=== PATIENT | male | born 1960 | race African-American/Black ===

== ENCOUNTER 2021-12-04 17:33 | Inpatient (IN) | payer OTHER ==
[2021-12-04 18:17] LABS: BASO % 0.5 % (0-2.0); EOS % 0.2 % (0-4.5); HEMATOCRIT 46.1 % (35.4-49); HEMOGLOBIN 14.4 GM/dL (11.7-16.9); LYMPH % 33.3 % (8-40); MCHC 31.3 g/dl (32.0-35.9); MEAN CELL VOLUME 73.5 fl (80-96); MEAN PLT VOLUME 9.7 fl (7.5-11.1); MONO % 13.1 % (3.8-10.2); NEUT % 52.9 % (42.8-82.8); PLATELET COUNT 139 10^3/uL (134-434); RBC 6.27 M/mm3 (4.00-5.60); RDW 14.6 % (11.9-15.9); WHITE BLOOD COUNT 3.9 K/mm3 (4.0-10.0)
[2021-12-04 18:37] LABS: ACTIVATED PTT 35.9 SECONDS (25.2-36.5); INR 1.24 (0.83-1.09); PROTHROMBIN TIME (PATIENT) 14.3 SEC (9.7-13.0)
[2021-12-04 18:40] LABS: CALCIUM 9.1 mg/dL (8.5-10.1)
[2021-12-04 18:41] LABS: BLOOD UREA NITROGEN 29.5 mg/dL (7-18)
[2021-12-04 18:43] LABS: CREATININE 1.7 mg/dL (0.55-1.3)
[2021-12-04 18:43] LABS: TRIGLYCERIDES 81 mg/dL (0-150)
[2021-12-04 18:44] LABS: CHOLESTEROL 174 mg/dL (50-200); LDL CHOLESTEROL (ONLY SJRH) 90 mg/dL (5-100)
[2021-12-04 18:45] LABS: BILIRUBIN,TOTAL 0.4 mg/dL (0.2-1); TOT PROT 8.1 g/dl (6.4-8.2)
[2021-12-04 18:45] LABS: HDL CHOLESTEROL 66 mg/dL (40-60)
[2021-12-04] MEDS: APIXABAN 5 MG TABLET PO SCH (21:41)
[2021-12-04] MEDS ORDERED: APIXABAN 5 MG TABLET ONE (21:43)
[2021-12-04] MEDS ORDERED: metoPROLOL SUCCINATE 25 MG TAB.SR.24H (FP) PO SCH (22:00)
[2021-12-05] MEDS ORDERED: SODIUM CHLORIDE 1,000 ML IV SCH (01:45)
[2021-12-05 02:37] LABS: URINE APPEARANCE CLEAR; URINE BILIRUBIN NEGATIVE (NEGATIVE); URINE COLOR YELLOW; URINE GLUCOSE (UA) NEGATIVE (NEGATIVE); URINE KETONE 1+ (NEGATIVE); URINE LEUK ESTERASE NEGATIVE (NEGATIVE); URINE NITRITE NEGATIVE (NEGATIVE); URINE PROTEIN TRACE (NEGATIVE); URINE UROBILINOGEN 0.2 mg/dL (0.2-1.0)
[2021-12-05 02:39] LABS: COCAINE, UR NEGATIVE (NEGATIVE); METHADONE, UR NEGATIVE (NEGATIVE); URINE BENZODIAZEPINES NEGATIVE (NEGATIVE)
[2021-12-05 02:40] LABS: PHENCYCLIDINE,URINE NEGATIVE (NEGATIVE); URINE BARBITURATES NEGATIVE (NEGATIVE)
[2021-12-05] MEDS: ATORVASTATIN CA 40 MG TABLET (FP) PO SCH ×2 (02:49→21:51)
[2021-12-05 02:57] LABS: OPIATES, URI NEGATIVE (NEGATIVE); URINE AMPHETAMINES NEGATIVE (NEGATIVE)
[2021-12-05 08:47] LABS: BASO % 0.6 % (0-2.0); EOS % 1.2 % (0-4.5); HEMATOCRIT 43.9 % (35.4-49); HEMOGLOBIN 13.7 GM/dL (11.7-16.9); LYMPH % 41.5 % (8-40); MCHC 31.1 g/dl (32.0-35.9); MEAN PLT VOLUME 9.7 fl (7.5-11.1); MONO % 16.2 % (3.8-10.2); NEUT % 40.5 % (42.8-82.8); PLATELET COUNT 131 10^3/uL (134-434); RBC 5.94 M/mm3 (4.00-5.60); RDW 15.3 % (11.9-15.9); WHITE BLOOD COUNT 3.3 K/mm3 (4.0-10.0)
[2021-12-05 09:12] LABS: CALCIUM 9.1 mg/dL (8.5-10.1)
[2021-12-05 09:13] LABS: MAGNESIUM 2.1 mg/dL (1.8-2.4)
[2021-12-05 09:15] LABS: ALBUMIN 3.5 g/dl (3.4-5.0); BLOOD UREA NITROGEN 23.5 mg/dL (7-18)
[2021-12-05 09:16] LABS: CREATININE 1.1 mg/dL (0.55-1.3)
[2021-12-05 09:18] LABS: PHOSPHOROUS 4.4 mg/dL (2.5-4.9); TOT PROT 7.3 g/dl (6.4-8.2)
[2021-12-05 09:19] LABS: BILIRUBIN,TOTAL 0.7 mg/dL (0.2-1)
[2021-12-05] MEDS ORDERED: ACETAMINOPHEN 325 MG TABLET (FP) PO ONE (10:30)
[2021-12-05] MEDS: INSULIN SLIDING SCALE (NOVOLOG) 1 VIAL SQ SCH ×3 (11:00→22:24)
[2021-12-05] MEDS ORDERED: metoPROLOL SUCCINATE 25 MG TAB.SR.24H (FP) PO ONE (11:41)
[2021-12-05] MEDS ORDERED: APIXABAN 5 MG TABLET ONE ×2 (11:41→21:42)
[2021-12-05] MEDS ORDERED: ACETAMINOPHEN 325 MG TABLET (FP) ONE (11:42)
[2021-12-05] MEDS: APIXABAN 5 MG TABLET PO SCH ×2 (12:44→21:51)
[2021-12-05] MEDS: metoPROLOL SUCCINATE 25 MG TAB.SR.24H (FP) PO SCH (12:44)
[2021-12-05] MEDS: SODIUM CHLORIDE 0.45% 1,000 ML IV SCH (12:44)
[2021-12-05 13:20] LABS: ANISOCYTOSIS 0; HELMET CELLS 0; HOWELL-JOLLY BODIES 0; MACROCYTOSIS 0; OVALOCYTE 0; ROULEAU 0; SICKELED CELLS 0; TARGET CELLS 0; TEAR DROP CELLS 0; TOXIC GRANULATION 0
[2021-12-05] MEDS ORDERED: THIAMINE HCL 200 MG/2 ML VIAL ONE (21:42)
[2021-12-05] MEDS ORDERED: ATORVASTATIN CA 40 MG TABLET (FP) ONE (21:42)
[2021-12-05] MEDS: THIAMINE HCL 200 MG/2 ML VIAL IVPB SCH ×2 (21:51→22:24)
[2021-12-06] MEDS: INSULIN SLIDING SCALE (NOVOLOG) 1 VIAL SQ SCH ×4 (06:02→21:51)
[2021-12-06 07:36] LABS: BASO % 0.5 % (0-2.0); EOS % 2.1 % (0-4.5); HEMOGLOBIN 13.8 GM/dL (11.7-16.9); LYMPH % 38.6 % (8-40); MCHC 31.3 g/dl (32.0-35.9); MEAN CELL VOLUME 73.5 fl (80-96); MEAN PLT VOLUME 10.4 fl (7.5-11.1); MONO % 14.2 % (3.8-10.2); NEUT % 44.6 % (42.8-82.8); PLATELET COUNT 130 10^3/uL (134-434); RBC 5.98 M/mm3 (4.00-5.60); RDW 14.6 % (11.9-15.9); WHITE BLOOD COUNT 3.5 K/mm3 (4.0-10.0)
[2021-12-06 07:45] LABS: BLOOD UREA NITROGEN 24.5 mg/dL (7-18); CALCIUM 8.3 mg/dL (8.5-10.1)
[2021-12-06 07:46] LABS: ALBUMIN 3.1 g/dl (3.4-5.0)
[2021-12-06 07:48] LABS: CREATININE 1.1 mg/dL (0.55-1.3); PHOSPHOROUS 4.2 mg/dL (2.5-4.9)
[2021-12-06 07:50] LABS: TOT PROT 6.6 g/dl (6.4-8.2)
[2021-12-06 07:53] LABS: BILIRUBIN,TOTAL 0.6 mg/dL (0.2-1)
[2021-12-06] MEDS: metoPROLOL SUCCINATE 25 MG TAB.SR.24H (FP) PO SCH (09:12)
[2021-12-06] MEDS: THIAMINE HCL 200 MG/2 ML VIAL IVPB SCH ×2 (09:13→21:50)
[2021-12-06] MEDS: SODIUM CHLORIDE 0.45% 1,000 ML IV SCH ×2 (09:17→11:29)
[2021-12-06] MEDS ORDERED: LOSARTAN POTASSIUM 50 MG TABLET PO SCH (18:30)
[2021-12-06] MEDS: ATORVASTATIN CA 40 MG TABLET (FP) PO SCH (21:49)
[2021-12-07] MEDS: INSULIN SLIDING SCALE (NOVOLOG) 1 VIAL SQ SCH ×4 (06:01→21:41)
[2021-12-07 06:52] LABS: HEMATOCRIT 42.7 % (35.4-49); HEMOGLOBIN 13.6 GM/dL (11.7-16.9); MCH 23.3 pg (25.7-33.7); MCHC 31.9 g/dl (32.0-35.9); MEAN CELL VOLUME 73.2 fl (80-96); MEAN PLT VOLUME 9.9 fl (7.5-11.1); PLATELET COUNT 130 10^3/uL (134-434); RBC 5.84 M/mm3 (4.00-5.60); RDW 14.9 % (11.9-15.9)
[2021-12-07 07:13] LABS: CALCIUM 8.1 mg/dL (8.5-10.1)
[2021-12-07 07:14] LABS: BLOOD UREA NITROGEN 19.2 mg/dL (7-18); MAGNESIUM 2.1 mg/dL (1.8-2.4)
[2021-12-07 07:17] LABS: CREATININE 1.1 mg/dL (0.55-1.3)
[2021-12-07 07:18] LABS: BILIRUBIN,TOTAL 0.4 mg/dL (0.2-1)
[2021-12-07 07:19] LABS: TOT PROT 6.3 g/dl (6.4-8.2)
[2021-12-07 09:37] LABS: ANISOCYTOSIS 0; HELMET CELLS 0; HOWELL-JOLLY BODIES 0; MACROCYTOSIS 0; OVALOCYTE 0; ROULEAU 0; SICKELED CELLS 0; TARGET CELLS 0; TEAR DROP CELLS 0; TOXIC GRANULATION 0
[2021-12-07] MEDS: LOSARTAN POTASSIUM 50 MG TABLET PO SCH (09:43)
[2021-12-07] MEDS: THIAMINE HCL 200 MG/2 ML VIAL IVPB SCH ×2 (09:44→21:41)
[2021-12-07] MEDS: metoPROLOL SUCCINATE 25 MG TAB.SR.24H (FP) PO SCH (09:44)
[2021-12-07] MEDS: APIXABAN 5 MG TABLET PO SCH ×2 (12:17→21:36)
[2021-12-07] MEDS ORDERED: amLODIPine BESYLATE 5 MG TABLET (FP) PO SCH (18:15)
[2021-12-07] MEDS: ATORVASTATIN CA 40 MG TABLET (FP) PO SCH (21:36)
[2021-12-07] MEDS ORDERED: amLODIPine BESYLATE 5 MG TABLET (FP) PO ONE (21:47)
[2021-12-08] MEDS ORDERED: MELATONIN 5 MG TABLETS PO ONE (02:13)
[2021-12-08] MEDS: INSULIN SLIDING SCALE (NOVOLOG) 1 VIAL SQ SCH ×4 (06:40→22:12)
[2021-12-08 07:30] LABS: HEMATOCRIT 42.6 % (35.4-49); HEMOGLOBIN 13.5 GM/dL (11.7-16.9); MCH 23.1 pg (25.7-33.7); MCHC 31.6 g/dl (32.0-35.9); MEAN CELL VOLUME 72.9 fl (80-96); MEAN PLT VOLUME 9.9 fl (7.5-11.1); PLATELET COUNT 131 10^3/uL (134-434); RBC 5.84 M/mm3 (4.00-5.60); RDW 14.8 % (11.9-15.9); WHITE BLOOD COUNT 2.8 K/mm3 (4.0-10.0)
[2021-12-08 08:02] LABS: ALBUMIN 3.1 g/dl (3.4-5.0); CALCIUM 8.3 mg/dL (8.5-10.1); MAGNESIUM 1.8 mg/dL (1.8-2.4)
[2021-12-08 08:08] LABS: BILIRUBIN,TOTAL 0.5 mg/dL (0.2-1); TOT PROT 6.6 g/dl (6.4-8.2)
[2021-12-08 09:36] LABS: ANISOCYTOSIS 1+; MACROCYTOSIS 0
[2021-12-08] MEDS: APIXABAN 5 MG TABLET PO SCH (10:13)
[2021-12-08] MEDS: LOSARTAN POTASSIUM 50 MG TABLET PO SCH (10:13)
[2021-12-08] MEDS: amLODIPine BESYLATE 10 MG TABLET (FP) PO SCH (10:13)
[2021-12-08] MEDS: THIAMINE HCL 200 MG/2 ML VIAL IVPB SCH ×2 (10:14→22:01)
[2021-12-08] MEDS ORDERED: CARVEDILOL 6.25 MG TABLET (FP) PO SCH ×2 (10:15→22:00)
[2021-12-08] MEDS: metoPROLOL SUCCINATE 25 MG TAB.SR.24H (FP) PO SCH (10:20)
[2021-12-08] MEDS ORDERED: CARVEDILOL 3.125 MG TABLET (FP) PO SCH (22:00)
[2021-12-08] MEDS: CARVEDILOL 3.125 MG TABLET (FP) PO SCH (22:00)
[2021-12-08] MEDS: ATORVASTATIN CA 40 MG TABLET (FP) PO SCH (22:00)
[2021-12-08 22:34] VITALS: BMI 29.2
[2021-12-09] MEDS: INSULIN SLIDING SCALE (NOVOLOG) 1 VIAL SQ SCH ×4 (06:29→21:20)
[2021-12-09 07:59] LABS: HEMATOCRIT 40.5 % (35.4-49); HEMOGLOBIN 13.2 GM/dL (11.7-16.9); MCH 23.6 pg (25.7-33.7); MCHC 32.5 g/dl (32.0-35.9); MEAN CELL VOLUME 72.6 fl (80-96); MEAN PLT VOLUME 9.6 fl (7.5-11.1); PLATELET COUNT 124 10^3/uL (134-434); RBC 5.58 M/mm3 (4.00-5.60); RDW 14.8 % (11.9-15.9); WHITE BLOOD COUNT 2.9 K/mm3 (4.0-10.0)
[2021-12-09 08:37] LABS: ALBUMIN 3.1 g/dl (3.4-5.0); BLOOD UREA NITROGEN 21.2 mg/dL (7-18)
[2021-12-09 08:39] LABS: CALCIUM 8.3 mg/dL (8.5-10.1); CREATININE 1.1 mg/dL (0.55-1.3); PHOSPHOROUS 4.8 mg/dL (2.5-4.9)
[2021-12-09 08:42] LABS: BILIRUBIN,TOTAL 0.4 mg/dL (0.2-1); TOT PROT 6.5 g/dl (6.4-8.2)
[2021-12-09] MEDS: amLODIPine BESYLATE 10 MG TABLET (FP) PO SCH (10:24)
[2021-12-09] MEDS: LOSARTAN POTASSIUM 50 MG TABLET PO SCH (10:24)
[2021-12-09] MEDS: THIAMINE HCL 200 MG/2 ML VIAL IVPB SCH ×2 (10:29→21:10)
[2021-12-09] MEDS: CARVEDILOL 3.125 MG TABLET (FP) PO SCH ×2 (12:05→21:10)
[2021-12-09] MEDS: ATORVASTATIN CA 40 MG TABLET (FP) PO SCH (21:10)
[2021-12-10] MEDS: INSULIN SLIDING SCALE (NOVOLOG) 1 VIAL SQ SCH ×4 (06:18→23:11)
[2021-12-10 08:34] LABS: HEMATOCRIT 42.5 % (35.4-49); HEMOGLOBIN 13.4 GM/dL (11.7-16.9); MCH 23.1 pg (25.7-33.7); MCHC 31.4 g/dl (32.0-35.9); MEAN CELL VOLUME 73.5 fl (80-96); MEAN PLT VOLUME 9.7 fl (7.5-11.1); PLATELET COUNT 136 10^3/uL (134-434); RBC 5.78 M/mm3 (4.00-5.60); RDW 14.8 % (11.9-15.9); WHITE BLOOD COUNT 2.5 K/mm3 (4.0-10.0)
[2021-12-10 08:40] LABS: CALCIUM 8.4 mg/dL (8.5-10.1)
[2021-12-10 08:41] LABS: ALBUMIN 3.2 g/dl (3.4-5.0); BLOOD UREA NITROGEN 16.2 mg/dL (7-18); MAGNESIUM 1.9 mg/dL (1.8-2.4)
[2021-12-10 08:45] LABS: PHOSPHOROUS 4.5 mg/dL (2.5-4.9)
[2021-12-10 08:46] LABS: BILIRUBIN,TOTAL 0.5 mg/dL (0.2-1); TOT PROT 6.7 g/dl (6.4-8.2)
[2021-12-10] MEDS: THIAMINE HCL 200 MG/2 ML VIAL IVPB SCH ×2 (09:46→23:12)
[2021-12-10] MEDS: LOSARTAN POTASSIUM 50 MG TABLET PO SCH (09:51)
[2021-12-10] MEDS: amLODIPine BESYLATE 10 MG TABLET (FP) PO SCH (09:52)
[2021-12-10] MEDS: CARVEDILOL 3.125 MG TABLET (FP) PO SCH ×2 (09:52→22:05)
[2021-12-10] MEDS: ATORVASTATIN CA 40 MG TABLET (FP) PO SCH (22:07)
[2021-12-11] MEDS: INSULIN SLIDING SCALE (NOVOLOG) 1 VIAL SQ SCH ×4 (06:27→21:46)
[2021-12-11] MEDS: amLODIPine BESYLATE 10 MG TABLET (FP) PO SCH (09:20)
[2021-12-11] MEDS: CARVEDILOL 3.125 MG TABLET (FP) PO SCH ×2 (09:20→21:32)
[2021-12-11] MEDS: LOSARTAN POTASSIUM 50 MG TABLET PO SCH (09:20)
[2021-12-11] MEDS: THIAMINE HCL 200 MG/2 ML VIAL IVPB SCH ×2 (09:20→21:33)
[2021-12-11] MEDS: ATORVASTATIN CA 40 MG TABLET (FP) PO SCH (21:32)
[2021-12-12] MEDS: INSULIN SLIDING SCALE (NOVOLOG) 1 VIAL SQ SCH ×4 (06:24→23:02)
[2021-12-12 07:52] LABS: BASO % 0.3 % (0-2.0); EOS % 2.3 % (0-4.5); HEMATOCRIT 40.6 % (35.4-49); HEMOGLOBIN 13.2 GM/dL (11.7-16.9); MCH 23.7 pg (25.7-33.7); MCHC 32.4 g/dl (32.0-35.9); MEAN CELL VOLUME 73.2 fl (80-96); MEAN PLT VOLUME 9.3 fl (7.5-11.1); MONO % 14.7 % (3.8-10.2); NEUT % 49.7 % (42.8-82.8); PLATELET COUNT 135 10^3/uL (134-434); RBC 5.55 M/mm3 (4.00-5.60); RDW 14.9 % (11.9-15.9); WHITE BLOOD COUNT 2.6 K/mm3 (4.0-10.0)
[2021-12-12 07:57] LABS: CALCIUM 8.2 mg/dL (8.5-10.1)
[2021-12-12 07:58] LABS: ALBUMIN 3.1 g/dl (3.4-5.0); BLOOD UREA NITROGEN 18.3 mg/dL (7-18); MAGNESIUM 1.9 mg/dL (1.8-2.4)
[2021-12-12 08:01] LABS: BILIRUBIN,TOTAL 0.4 mg/dL (0.2-1); PHOSPHOROUS 4.1 mg/dL (2.5-4.9); TOT PROT 6.5 g/dl (6.4-8.2)
[2021-12-12] MEDS: LOSARTAN POTASSIUM 50 MG TABLET PO SCH (09:59)
[2021-12-12] MEDS: CARVEDILOL 3.125 MG TABLET (FP) PO SCH ×2 (10:00→22:47)
[2021-12-12] MEDS: amLODIPine BESYLATE 10 MG TABLET (FP) PO SCH (10:00)
[2021-12-12] MEDS: THIAMINE HCL 200 MG/2 ML VIAL IVPB SCH ×2 (10:00→22:46)
[2021-12-12] MEDS: hydrALAZINE HCL 10 MG TABLET PO SCH (22:47)
[2021-12-12] MEDS: ATORVASTATIN CA 40 MG TABLET (FP) PO SCH (22:47)
[2021-12-13] MEDS: INSULIN SLIDING SCALE (NOVOLOG) 1 VIAL SQ SCH ×4 (06:03→21:17)
[2021-12-13 07:31] LABS: HEMATOCRIT 44.2 % (35.4-49); HEMOGLOBIN 14.1 GM/dL (11.7-16.9); MCH 23.2 pg (25.7-33.7); MCHC 31.9 g/dl (32.0-35.9); MEAN CELL VOLUME 72.7 fl (80-96); MEAN PLT VOLUME 9.3 fl (7.5-11.1); PLATELET COUNT 150 10^3/uL (134-434); RBC 6.09 M/mm3 (4.00-5.60); RDW 14.4 % (11.9-15.9); WHITE BLOOD COUNT 2.5 K/mm3 (4.0-10.0)
[2021-12-13 07:53] LABS: PHOSPHOROUS 4.4 mg/dL (2.5-4.9)
[2021-12-13 07:54] LABS: ALBUMIN 3.3 g/dl (3.4-5.0); BLOOD UREA NITROGEN 14.5 mg/dL (7-18)
[2021-12-13 07:55] LABS: BILIRUBIN,TOTAL 0.5 mg/dL (0.2-1); TOT PROT 6.8 g/dl (6.4-8.2)
[2021-12-13 07:56] LABS: CALCIUM 8.7 mg/dL (8.5-10.1)
[2021-12-13] MEDS: CARVEDILOL 3.125 MG TABLET (FP) PO SCH ×2 (09:55→21:17)
[2021-12-13] MEDS: hydrALAZINE HCL 10 MG TABLET PO SCH ×2 (09:55→21:17)
[2021-12-13] MEDS: LOSARTAN POTASSIUM 50 MG TABLET PO SCH (09:55)
[2021-12-13] MEDS: amLODIPine BESYLATE 10 MG TABLET (FP) PO SCH (09:55)
[2021-12-13] MEDS: THIAMINE HCL 200 MG/2 ML VIAL IVPB SCH ×2 (10:00→21:16)
[2021-12-13] MEDS: ATORVASTATIN CA 40 MG TABLET (FP) PO SCH (21:16)
[2021-12-14] MEDS: INSULIN SLIDING SCALE (NOVOLOG) 1 VIAL SQ SCH ×3 (06:09→16:58)
[2021-12-14 08:21] LABS: HEMATOCRIT 44.2 % (35.4-49); HEMOGLOBIN 14.1 GM/dL (11.7-16.9); MCH 23.4 pg (25.7-33.7); MEAN CELL VOLUME 73.2 fl (80-96); MEAN PLT VOLUME 9.1 fl (7.5-11.1); PLATELET COUNT 154 10^3/uL (134-434); RBC 6.03 M/mm3 (4.00-5.60); RDW 14.7 % (11.9-15.9); WHITE BLOOD COUNT 2.9 K/mm3 (4.0-10.0)
[2021-12-14 08:44] LABS: ALBUMIN 3.4 g/dl (3.4-5.0); BLOOD UREA NITROGEN 15.2 mg/dL (7-18); CALCIUM 8.8 mg/dL (8.5-10.1)
[2021-12-14 08:45] LABS: CREATININE 1.1 mg/dL (0.55-1.3); PHOSPHOROUS 4.8 mg/dL (2.5-4.9)
[2021-12-14 08:47] LABS: BILIRUBIN,TOTAL 0.5 mg/dL (0.2-1); TOT PROT 6.7 g/dl (6.4-8.2)
[2021-12-14] MEDS: CARVEDILOL 3.125 MG TABLET (FP) PO SCH (09:13)
[2021-12-14] MEDS: THIAMINE HCL 200 MG/2 ML VIAL IVPB SCH (09:13)
[2021-12-14] MEDS: LOSARTAN POTASSIUM 50 MG TABLET PO SCH (09:13)
[2021-12-14] MEDS: amLODIPine BESYLATE 10 MG TABLET (FP) PO SCH (09:13)
[2021-12-14] MEDS: hydrALAZINE HCL 10 MG TABLET PO SCH (09:13)
[2021-12-14 09:56] VITALS: PULSE 75; RESP 18
[2021-12-14] MEDS ORDERED: HALOPERIDOL LACTATE 5 MG/ML IM ONE (11:10)
[2021-12-14 18:02] VITALS: BP 159/110; TEMP 98.2
== END 2021-12-14 20:10 | disposition home or self-care (01) | DRG 64 ==
LOC: JER 17:33 → JERBED 17:45 → J4W 12-05 22:04
PROVIDERS: ADMIT Internal Medicine; ATTEND Internal Medicine
DX: I61.8 Other nontraumatic intracerebral hemorrhage (principal); G93.41 Metabolic encephalopathy; I24.8 Other forms of acute ischemic heart disease; N17.9 Acute kidney failure, unspecified; R47.01 Aphasia; I48.19 Other persistent atrial fibrillation; E78.5 Hyperlipidemia, unspecified; F10.20 Alcohol dependence, uncomplicated; I12.9 Hypertensive chronic kidney disease with stage 1 through stage 4 chronic kidney disease, or unspecified chronic kidney disease; E11.22 Type 2 diabetes mellitus with diabetic chronic kidney disease; N18.9 Chronic kidney disease, unspecified
CPT/HCPCS: 0241U-QW; 36415; 70450-TC; 70496-TC; 70498-TC; 70551-TC; 71045-TC-FY; 76775-TC; 76856-TC; 80053; 80061; 80307; 81003; 82550; 82553; 82570; 82962; 83036; 83735; 84100; 84156; 84300; 84443; 84484; 85025; 85027; 85610; 85730; 86850; 86900; 86901; 87086; 93005; 93010; 93306-TC; 97116-GP; 97162-GP; 99285-25